=== PATIENT | male | born 1965 ===

== ENCOUNTER 2018-06-07 19:57 | Emergency (ER) | payer SELFPAY ==
--- NOTE | 2018-06-07 20:34 | EDPHY ---
H & P Time Seen by Provider: 06/07/18 20:19 HPI/ROS: CHIEF COMPLAINT: Alcohol intoxication HISTORY OF PRESENT ILLNESS: Patient is a 52-year-old male with a history of alcohol abuse that presents emergency department with alcohol intoxication. The patient was found intoxicated in front of a business. Police were called. Patient was placed on our cold. The patient was noted to have wet himself. He was unable to ambulate. Patient has no complaints at this time. He denies drug use. The patient does report drinking alcohol. REVIEW OF SYSTEMS: My complete review of systems is negative except as mentioned in the HPI. Past Medical/Surgical History: Alcohol abuse Smoking Status: Never smoked Physical Exam: Vitals noted GENERAL: Intoxicated appearing. Sleeping. Arousable to voice.. HEENT: Eyes normal to inspection, normal pharynx, no signs of dehydration. Protecting her ways. NECK: No thyromegaly, no lymphadenopathy, supple. RESPIRATORY: Clear to auscultation bilaterally, no rales, rhonchi or wheezing. CVS: Regular rate and rhythm, no rubs, murmurs, or gallops. ABDOMEN: Soft, nontender, nondistended, no organomegaly. Benign BACK: Normal to inspection, no CVA tenderness. SKIN: Normal color, no rash, warm, dry. No pallor. EXTREMITIES: No pedal edema, no calf tenderness, no Homans sign or cords, no joint swelling. NEURO/PSYCH: Alert and oriented, intoxicated, normal motor sensory exam. No obvious cranial nerve deficit. Constitutional: Initial Vital Signs Temperature (C) 36.5 C 06/07/18 20:02 Heart Rate 64 06/07/18 20:02 Respiratory Rate 18 06/07/18 20:02 Blood Pressure 122/91 H 06/07/18 20:02 O2 Sat (%) 96 06/07/18 20:02 O2 Delivery Mode Room Air Allergies/Adverse Reactions: No Known Allergies Allergy (Unverified 06/07/18 20:05) Home Medications: Medication Instructions Recorded NK [No Known Home Meds] 06/07/18 Medical Decision Making ED Course/Re-evaluation: In the emergency department I discussed possible etiologies with the patient. I answered all his questions. Patient is on an AR[facility] hold. He will be observed until he is able to ambulate. On recheck the patient is still intoxicated appearing. He is unable to ambulate. The patient will continue to be observed. He will be sent to the arc once he is able to ambulate. Differential Diagnosis: Differential includes but is not limited to alcohol intoxication, drug abuse, closed-head injury, bacteremia, sepsis, electrolyte abnormality, sugar abnormality Departure - Departure Disposition: Home, Routine, Self-Care Clinical Impression: Alcoholic intoxication Qualifiers: Complication of substance-induced condition: uncomplicated Qualified Code(s): F10.920 - Alcohol use, unspecified with intoxication, uncomplicated Condition: Good Instructions: Alcohol Intoxication (ED), Abuse of Alcohol (ED) Additional Instructions: Slowly decrease your alcohol intake. Return with worsening complaints or concerns. Referrals: [facility],. [Clinic] - 2-3 days, if not improved
[2018-06-08] MEDS ORDERED: CHLORDIAZEPOXIDE 25MG PREPK#6 BTL TAKEHOME ONE (00:20)
[2018-06-08 01:24] VITALS: BP 145/80
== END 2018-06-08 01:22 | disposition home or self-care (01) ==
DX: F10.920 Alcohol use, unspecified with intoxication, uncomplicated (principal)